=== PATIENT | male | born 1955 | race Caucasian/White ===

== ENCOUNTER 2024-06-15 13:03 | Inpatient (IN) ==
[2024-06-15 13:30] LABS: ABS Lymphocytes 0.5 10^3/uL (1.0-4.8); ABS Monocytes 1.2 10^3/uL (0.0-1.1); ABS Neutrophils 11.5 10^3/uL (1.5-7.6); Eosinophil % 0.2 %; Hematocrit 26.1 % (38-53); Hemoglobin 8.4 g/dL (13.2-16.3); Lymphocyte % 3.7 %; Mean Corpuscular Hemoglobin 28.7 pg (27-33); Mean Corpuscular Hgb Conc 32.2 g/dL (31-36); Mean Corpuscular Volume 88.9 fL (80-97); Mean Platelet Volume 9.2 fL (7.5-11.2); Platelet Count 273 10^3/uL (150-450); Red Blood Count 2.94 10^6/uL (4.06-5.63); Red Cell Distribution Width 16.6 % (12-17); White Blood Count 13.2 10^3/uL (3.6-10.2)
[2024-06-15 13:38] LABS: INR 2.1 (0.83-1.13)
[2024-06-15 14:24] LABS: Albumin 3.5 g/dL (3.2-5.2); Albumin/Globulin Ratio 1.8 (1-3); C Reactive Protein 35.28 mg/L (<8.01); Calcium 8.6 mg/dL (8.6-10.3); Creatinine, Serum 1.51 mg/dL (0.67-1.17); Potassium 4.6 mmol/L (3.5-5.0); Total Bilirubin 0.6 mg/dL (0.2-1.0); Total Protein 5.5 g/dL (6.4-8.9)
[2024-06-15] MEDS: Pantoprazole VIAL 40 MG VIAL IV ONE (17:49)
[2024-06-15] MEDS: Iodixanol (CONTRAST) 320 MG/ML 100 ML SDV IV ONE (20:17)
[2024-06-15] MEDS: Octreotide Acetate 50 MCG in NS 0.9% 50 ML 50 ML IV ONE (22:13)
[2024-06-15] MEDS: Pantoprazole VIAL 40 MG VIAL IV SCH (22:13)
[2024-06-15] MEDS: Octreotide Acetate 500 MCG in NS 0.9% 100 ml BAG 100 ML IV SCH (22:35)
[2024-06-16 00:27] LABS: Hematocrit 23.1 % (38-53); Hemoglobin 7.4 g/dL (13.2-16.3)
[2024-06-16 05:51] LABS: Hematocrit 24.2 % (38-53); Mean Corpuscular Hemoglobin 29.5 pg (27-33); Mean Corpuscular Hgb Conc 33.2 g/dL (31-36); Mean Corpuscular Volume 88.7 fL (80-97); Mean Platelet Volume 9.1 fL (7.5-11.2); Platelet Count 183 10^3/uL (150-450); Red Blood Count 2.73 10^6/uL (4.06-5.63); Red Cell Distribution Width 16.7 % (12-17); White Blood Count 6.4 10^3/uL (3.6-10.2)
[2024-06-16 06:39] LABS: ALT 18 U/L (7-52); AST 15 U/L (13-39); Albumin 3.1 g/dL (3.2-5.2); Albumin/Globulin Ratio 1.9 (1-3); Alkaline Phosphatase 99 U/L (35-149); Anion Gap 4 mmol/L (2-16); Blood Urea Nitrogen 34 mg/dL (6-24); CO2 Carbon Dioxide 24 mmol/L (22-32); Calcium 8.3 mg/dL (8.6-10.3); Chloride 105 mmol/L (101-111); Creatinine, Serum 1.32 mg/dL (0.67-1.17); Direct Bilirubin 0.1 mg/dL (0.03-0.18); Globulin 1.6 g/dL (2-4); Glucose 143 mg/dL (70-100); Indirect Bilirubin 0.4 mg/dL (0.3-1.0); Magnesium 2.1 mg/dL (1.9-2.7); Potassium 4.9 mmol/L (3.5-5.0); Sodium 133 mmol/L (135-145); Total Bilirubin 0.5 mg/dL (0.2-1.0); Total Protein 4.7 g/dL (6.4-8.9); eGFR CKD-EPI 58.8 (>60)
[2024-06-16] MEDS: Morphine 2 MG/ML SYRINGE IV PRN (09:44)
[2024-06-16] MEDS ORDERED: Phenylephrine 40 mcg/mL 10mL (400mcg) SYRINGE ONE (12:44)
[2024-06-16 14:23] LABS: % Iron Saturation 9 % (15-55); .Transferrin 167 mg/dL (203-362); Iron < 20 ug/dL (50-212); Total Iron Binding Capacity 234 mcg/dL (250-450); Unsaturated Iron Binding 214 ug/dL
[2024-06-16 14:34] LABS: Ferritin 59.5 ng/mL (24-336)
[2024-06-16] MEDS: Ferric Gluconate IV 250 MG in NS 0.9% 250 ml 200 ML IVPB SCH (17:11)
[2024-06-17] MEDS: Calcium Carb (TUMS) 500 mg CHEW TAB PO PRN (01:23)
[2024-06-17] MEDS: Ondansetron 4 mg VIAL 2 MG/ML 2 ml VIAL IV PRN (02:04)
[2024-06-17 05:47] LABS: Hematocrit 26.1 % (38-53); Hemoglobin 8.6 g/dL (13.2-16.3); Mean Corpuscular Hemoglobin 29.2 pg (27-33); Mean Corpuscular Hgb Conc 33.1 g/dL (31-36); Mean Corpuscular Volume 88.2 fL (80-97); Platelet Count 279 10^3/uL (150-450); Red Blood Count 2.95 10^6/uL (4.06-5.63); Red Cell Distribution Width 16.5 % (12-17); White Blood Count 13.3 10^3/uL (3.6-10.2)
[2024-06-17 06:32] LABS: Calcium 8.4 mg/dL (8.6-10.3); Creatinine, Serum 1.47 mg/dL (0.67-1.17); Magnesium 2.1 mg/dL (1.9-2.7); Potassium 5.6 mmol/L (3.5-5.0); eGFR CKD-EPI 51.6 (>60)
[2024-06-17 08:23] LABS: Calcium 8.4 mg/dL (8.6-10.3); Creatinine, Serum 1.57 mg/dL (0.67-1.17); Potassium 5.6 mmol/L (3.5-5.0); eGFR CKD-EPI 47.7 (>60)
[2024-06-17] MEDS: SODIUM ZIRCONIUM CYCLOSILICATE 10 GM PACKET PO ONE ×2 (08:46→08:49)
[2024-06-17] MEDS: Ferric Gluconate IV 250 MG in NS 0.9% 250 ml 200 ML IVPB SCH (08:49)
[2024-06-17 12:26] LABS: Hematocrit 28.3 % (38-53); Hemoglobin 8.8 g/dL (13.2-16.3); Mean Corpuscular Hemoglobin 27.7 pg (27-33); Mean Corpuscular Hgb Conc 31.1 g/dL (31-36); Mean Corpuscular Volume 89.1 fL (80-97); Mean Platelet Volume 9.4 fL (7.5-11.2); Platelet Count 291 10^3/uL (150-450); Red Blood Count 3.18 10^6/uL (4.06-5.63); Red Cell Distribution Width 16.7 % (12-17); White Blood Count 12.1 10^3/uL (3.6-10.2)
[2024-06-17 12:47] LABS: Calcium 8.4 mg/dL (8.6-10.3); Creatinine, Serum 1.57 mg/dL (0.67-1.17); Potassium 5.7 mmol/L (3.5-5.0); eGFR CKD-EPI 47.7 (>60)
[2024-06-17] MEDS ORDERED: D5NS 0.9% 1000 ml BAG 1,000 ML IV SCH (14:00)
[2024-06-17] MEDS: D5NS 0.9% 1000 ml BAG 1,000 ML IV SCH (16:45)
[2024-06-17] MEDS: Prochlorperazine 5 mg/ml 2 ml VIAL (10 mg) IV PRN (18:04)
[2024-06-18 06:00] LABS: Creatinine, Serum 1.54 mg/dL (0.67-1.17); Magnesium 2.1 mg/dL (1.9-2.7); Potassium 4.8 mmol/L (3.5-5.0); eGFR CKD-EPI 48.8 (>60)
[2024-06-18 06:20] LABS: Hematocrit 24.2 % (38-53); Hemoglobin 7.9 g/dL (13.2-16.3); Mean Corpuscular Hemoglobin 28.6 pg (27-33); Mean Corpuscular Hgb Conc 32.6 g/dL (31-36); Mean Corpuscular Volume 87.9 fL (80-97); Platelet Count 260 10^3/uL (150-450); Red Blood Count 2.75 10^6/uL (4.06-5.63); Red Cell Distribution Width 16.5 % (12-17); White Blood Count 12.8 10^3/uL (3.6-10.2)
[2024-06-19] MEDS: Al Hydrox/Mg Hydrox/Simet LIQ 30 ML UDC PO ONE (09:54)
[2024-06-19 10:32] LABS: Hematocrit 27.4 % (38-53); Hemoglobin 8.5 g/dL (13.2-16.3); Mean Corpuscular Hemoglobin 27.4 pg (27-33); Mean Corpuscular Volume 88.3 fL (80-97); Mean Platelet Volume 8.8 fL (7.5-11.2); Platelet Count 381 10^3/uL (150-450); White Blood Count 27.7 10^3/uL (3.6-10.2)
[2024-06-19 11:03] LABS: Calcium 8.5 mg/dL (8.6-10.3); Creatinine, Serum 2.58 mg/dL (0.67-1.17); Magnesium 2.1 mg/dL (1.9-2.7); Potassium 6.3 mmol/L (3.5-5.0); eGFR CKD-EPI 26.3 (>60)
[2024-06-19 11:13] LABS: ABS Basophils 0.1 10^3/uL (0.0-0.1); ABS Lymphocytes 0.3 10^3/uL (1.0-4.8); ABS Monocytes 1.2 10^3/uL (0.0-1.1); ABS Neutrophils 26.2 10^3/uL (1.5-7.6); ABS Nucleated RBC 0.01 10^3/ul; Lymphocyte % 0.9 %
[2024-06-19] MEDS: SODIUM ZIRCONIUM CYCLOSILICATE 10 GM PACKET PO ONE ×2 (11:33→18:18)
[2024-06-19] MEDS ORDERED: Zosyn per Pharmacy NOTE FOLLOW UP SCH (12:00)
[2024-06-19] MEDS: ZOSYN 3.375 GM x ONE DOSE over 30 miuntes IV (12:35)
[2024-06-19] MEDS: SODIUM ZIRCONIUM CYCLOSILICATE 10 GM PACKET PO SCH (12:36)
[2024-06-19] MEDS: D5NS 0.9% 1000 ml BAG 1,000 ML IV SCH (12:45)
[2024-06-19] MEDS: NS 0.9% 1000 ml BAG 1,000 ML IV ONE (14:17)
[2024-06-19] MEDS: ZOSYN 3.375 GM Q8H per EXTENDED INFUSION IV SCH (16:17)
[2024-06-19 17:32] LABS: Creatinine, Serum 2.69 mg/dL (0.67-1.17); Magnesium 2.2 mg/dL (1.9-2.7)
[2024-06-19 18:57] LABS: Body Fluid Appearance Cloudy; Body Fluid Color Pink; Body Fluid Mono 40 %; Body Fluid Total Cells Counted 200
[2024-06-19 18:58] LABS: Body Fluid Total Nucleated 344 /mcL
[2024-06-19 19:00] LABS: Body Fluid Source Peritonial Fluid
[2024-06-19 20:23] LABS: Calcium 7.7 mg/dL (8.6-10.3); Creatinine, Serum 2.7 mg/dL (0.67-1.17); Potassium 5.9 mmol/L (3.5-5.0); eGFR CKD-EPI 24.9 (>60)
[2024-06-19] MEDS: Ondansetron 4 mg VIAL 2 MG/ML 2 ml VIAL IV ONE (20:23)
[2024-06-20] MEDS: NS 0.9% 1000 ml BAG 1,000 ML IV ONE ×2 (03:18→17:13)
[2024-06-20 03:55] LABS: PCO2 Arterial 23 mmHg (35-45)
[2024-06-20 03:57] LABS: PO2 Arterial 56 mmHg (80-100)
[2024-06-20 03:57] LABS: Hemoglobin 7.9 g/dL (13.2-16.3); Mean Corpuscular Hemoglobin 29.1 pg (27-33); Mean Corpuscular Hgb Conc 32.8 g/dL (31-36); Mean Corpuscular Volume 88.7 fL (80-97); Mean Platelet Volume 8.6 fL (7.5-11.2); Platelet Count 310 10^3/uL (150-450); Red Cell Distribution Width 17.5 % (12-17); White Blood Count 17.8 10^3/uL (3.6-10.2)
[2024-06-20 04:25] LABS: ABS Basophils 0.1 10^3/uL (0.0-0.1); ABS Lymphocytes 0.2 10^3/uL (1.0-4.8); ABS Monocytes 0.8 10^3/uL (0.0-1.1); ABS Neutrophils 16.7 10^3/uL (1.5-7.6); ABS Nucleated RBC 0.02 10^3/ul; Anisocytosis 1+; Lymphocyte % 0.9 %; Nucleated Red Blood Cells % 0.1 %/100WBC (0.0-0.8); Polychromasia 1+
[2024-06-20 05:56] LABS: Magnesium 2.1 mg/dL (1.9-2.7)
[2024-06-20 05:57] LABS: Albumin 2.6 g/dL (3.2-5.2); Albumin/Globulin Ratio 1.4 (1-3); Calcium 7.4 mg/dL (8.6-10.3); Creatinine, Serum 3.01 mg/dL (0.67-1.17); Globulin 1.8 g/dL (2-4); Phosphorus 6.2 mg/dL (2.5-5.0); Potassium 5.8 mmol/L (3.5-5.0); Total Bilirubin 0.8 mg/dL (0.2-1.0); Total Protein 4.4 g/dL (6.4-8.9); eGFR CKD-EPI 21.8 (>60)
[2024-06-20] MEDS: Norepinephrine 4 MG/250mL D5W 4,000 MCG/250 ML BAG IV SCH (06:13)
[2024-06-20] MEDS: Albumin Human 25% 25 GM/100 ML BTL IV ONE (08:01)
[2024-06-20] MEDS: Albumin Human 5% 12.5 GM/250 ML BTL IV ONE ×2 (08:01→08:25)
[2024-06-20 10:10] LABS: Urine Appearance No Cx Clear (Clear); Urine Bilirubin No Culture Negative (Negative); Urine Blood No Culture Negative (Negative); Urine Color No Culture Yellow; Urine Glucose No Culture Negative (Negative); Urine Ketones No Culture Negative (Negative); Urine Leukocytes No Culture Negative Leu/uL (Negative); Urine Nitrite No Culture Negative (Negative); Urine Protein No Culture Trace (Negative); Urine Specific Gravity No Cx 1.023 (1.002-1.030); Urine Urobilinogen No Cx Negative (Negative)
[2024-06-20 10:36] LABS: Ur Squamous Epithelial No Cx Present /HPF (Absent); Urine Bacteria No Culture Absent /HPF (Absent); Urine Hyaline Casts No Culture Present /HPF (Absent); Urine Red Blood Cell No Cult Trace(0-2/hpf) /HPF (0-Trace); Urine White Blood Cell No Cult Trace(0-5/hpf) /HPF (0-Trace)
[2024-06-20] MEDS ORDERED: Ondansetron 4 mg VIAL 2 MG/ML 2 ml VIAL IV PRN (11:02)
[2024-06-20] MEDS: Lactulose 30 ml UDC PO SCH (17:12)
[2024-06-21] MEDS: Morphine 2 MG/ML SYRINGE IV ONE (02:20)
[2024-06-21 04:47] LABS: Hematocrit 28.1 % (38-53); Hemoglobin 8.8 g/dL (13.2-16.3); Mean Corpuscular Hemoglobin 28.2 pg (27-33); Mean Corpuscular Hgb Conc 31.2 g/dL (31-36); Mean Corpuscular Volume 90.4 fL (80-97); Platelet Count 367 10^3/uL (150-450); Red Blood Count 3.11 10^6/uL (4.06-5.63); White Blood Count 15.2 10^3/uL (3.6-10.2)
[2024-06-21 04:53] VITALS: BP 84/50
[2024-06-21 05:10] LABS: ABS Basophils 0.1 10^3/uL (0.0-0.1); ABS Lymphocytes 0.1 10^3/uL (1.0-4.8); ABS Monocytes 0.3 10^3/uL (0.0-1.1); ABS Neutrophils 14.7 10^3/uL (1.5-7.6); ABS Nucleated RBC 0.04 10^3/ul; Anisocytosis 1+; Burr Cells 1+; Eosinophil % 0.1 %; Lymphocyte % 0.9 %; Nucleated Red Blood Cells % 0.3 %/100WBC (0.0-0.8); Polychromasia 1+; Toxic Granulation 1+
[2024-06-21 05:27] LABS: Calcium 7.9 mg/dL (8.6-10.3); Creatinine, Serum 3.92 mg/dL (0.67-1.17); Magnesium 2.5 mg/dL (1.9-2.7); Phosphorus 7.6 mg/dL (2.5-5.0); Potassium 6.1 mmol/L (3.5-5.0); eGFR CKD-EPI 15.9 (>60)
[2024-06-21] MEDS ORDERED: Morphine 4 MG/ML VIAL (1 ml) IV ONE (05:27)
[2024-06-22 09:36] LABS: Fluid Type: PERITONEAL FLUID; Triglycerides (BF) 22 mg/dL
[2024-06-22 09:41] LABS: BF PH 7.6
[2024-06-22 10:25] LABS: Body Fluid Bilirubin 0.4 mg/dL; Fluid Type PERITONEAL FLUID
[2024-06-22 11:00] LABS: Albumin, BF 1.4 g/dL; Fluid Type, Albumin PERITONEAL FLUID; Fluid Type, Protein, Total PERITONEAL FLUID; Fluid Type: PERITONEAL FLUID; Glucose, BF 165 mg/dL; Total Protein, BF 1.9 g/dL
[2024-06-22 11:08] LABS: Fluid Type, Amylase PERITONEAL FLUID
== END 2024-06-21 05:33 | disposition expired | DRG 193 ==
LOC: ED 13:03 → EDHOLD 16:32 → MED 21:01 → ICU 06-20 04:02
PROVIDERS: ADMIT Student in an Organized Health Care Education/Training Program; ATTEND Hospitalist
PROC: O.GIEGD (2024-06-16 12:20)